=== PATIENT | female | born 2000 | race Caucasian/White ===

== ENCOUNTER 2019-07-02 12:38 | Emergency (ER) | payer BC ==
[2019-07-02] MEDS ORDERED: Ketorolac INJ* 30 MG/ML 1 ML VIAL IV ONE (15:33)
[2019-07-02] MEDS ORDERED: Metoclopramide IV* 5 MG/ML 2 ML VIAL IV SLOW PU ONE (15:33)
[2019-07-02] MEDS ORDERED: NS 0.9% 1000 ML** 1,000 ML IV ONE (15:33)
--- NOTE | 2019-07-02 17:50 | ED ---
Neurological HPI - HPI Summary HPI Summary: 19 y/o female presented to [facility] for frequent migraines recently. She has a 7 year hx of migraines that usually occur once per month but she has had one every day for the past 7 days. She is experiencing nausea, lateral neck pain and pain by her left eye radiating toward the back of her head. She reports her migraines usually starts near her eye and radiates down her neck. In the room, she was sensitive to light. Pt denies vomiting. Her migraine today began 3 hours after waking up, and she notes that her migraines are usually better at night. No fevers or infectious symptoms. Is supposed to get sumatriptan from [facility], did not get yet. Does not have a neurologist. - History of Current Complaint Chief Complaint: EDHeadache Stated Complaint: MIGRAINE PER PT Time Seen by Provider: 07/02/19 15:32 Hx Obtained From: Patient Onset/Duration: Started hours ago, Still Present Current Severity: Severe Pain Intensity: 8 Pain Scale Used: 0-10 Numeric Aggravating: Bright Lights Alleviating: Rest, Closing Eyes Associated Signs and Symptoms: Positive: Headache, Nausea/Vomiting - nausea, Neck Pain/Stiffness - Allergy/Home Medications Allergies/Adverse Reactions: Allergies Allergy/AdvReac Type Severity Reaction Status Date / Time No Known Allergies Allergy Verified 07/02/19 12:45 PMH/Surg Hx/FS Hx/Imm Hx Sensory History: Denies: Hx Legally Blind, Hx Deafness Opthamlomology History: Denies: Hx Legally Blind EENT History: Denies: Hx Deafness Infectious Disease History: No Infectious Disease History: Denies: Traveled Outside the [place] in Last 30 Days - Family History Known Family History: Negative: Blood Disorder - Social History Alcohol Use: None Substance Use Type: Reports: None Smoking Status (MU): Never Smoked Tobacco Review of Systems Positive: Photophobia Positive: Nausea Positive: Other - bilat neck stiffness Positive: Headache All Other Systems Reviewed And Are Negative: Yes Physical Exam - Summary Physical Exam Summary: Constitutional: Well-developed, Well-nourished, Alert. (-) Distressed Skin: Warm, Dry HENT: Normocephalic; Atraumatic Eyes: Conjunctiva normal, PERRL Neck: Musculoskeletal ROM normal neck. (-) JVD, (-) Stridor, (-) Nuchal rigidity , mild L sided paraspinal tenderness. Cardio: Rhythm regular, rate normal, Heart sounds normal; Intact distal pulses; Radial pulses are 2+ and symmetric. (-) Murmur Pulmonary/Chest wall: Effort normal. (-) Respiratory distress, (-) Wheezes, (-) Rales Abd: Soft, (-) tenderness, (-) Distension, (-) Guarding, (-) Rebound Musculoskeletal: (-) Edema Lymph: (-) Cervical adenopathy Neuro: Alert, Oriented x3, CN 2-12 grossly intact, ambulates w steady gait. Psych: Mood and affect Normal Triage Information Reviewed: Yes Vital Signs On Initial Exam: Initial Vitals Temp Pulse Resp BP Pulse Ox 99.1 F 66 16 142/89 98 07/02/19 12:42 07/02/19 12:42 07/02/19 12:42 07/02/19 12:42 07/02/19 12:42 Vital Signs Reviewed: Yes Procedures - Sedation Patient Received Moderate/Deep Sedation with Procedure: No Diagnostics - Vital Signs Vital Signs Temp Pulse Resp BP Pulse Ox 07/02/19 14:36 98.7 F 62 19 127/73 98 07/02/19 12:42 99.1 F 66 16 142/89 98 - Laboratory Lab Statement: Any lab studies that have been ordered have been reviewed, and results considered in the medical decision making process. Re-Evaluation - Re-Evaluation First Eval Re-Evaluation Time: 17:15 Comment: Pt is feeling better, will f/u w neurology Course/Dx - Course Course Of Treatment: 19 y/o F w hx migraines p/w headache. - although does NOT have a history of headache of exactly the same type, pain was not sudden onset/ thunderbolt, not worst of life, no meningismus, no neuro deficit on exam, and no personal/family history of aneurysm, so unlikely ICH. No known/suspected cancer and neuro exam WNL, so unlikely mass lesion. No fever, URI sx, meningismus, or known immunocompromised state to suggest meningitis. Therefore no imaging ordered and no LP performed at this point. Will try symptomatic relief and reassess. - Diagnoses Provider Diagnoses: Migraine Discharge ED - Sign-Out/Discharge Documenting (check all that apply): Patient Departure - dc - Discharge Plan Condition: Stable Disposition: HOME Patient Education Materials: Migraine Headache (ED) Referrals: Brandi Mayorga, [employer] [Primary Care Provider] - Villa Del Castillo MD [Medical Doctor] - Additional Instructions: You were seen in the emergency department for a migraine. Please follow up with neurology. Please follow up with your primary care doctor in next 2-3 days and return to emergency department for worsening headaches, fevers, neck pain, or concerning symptoms. It was a pleasure taking care of you today. - Billing Disposition and Condition Condition: STABLE Disposition: Home - Attestation Statements Document Initiated by Leslie: Yes Documenting Scribe: Kal Francis Provider For Whom Leslie is Documenting (Include Credential): Charito Barrera Scribe Attestation: Kal Newton, manuelaibed for [place]n [place] on 07/03/19 at 1553. Scribe Documentation Reviewed: Yes Provider Attestation: The documentation as recorded by the lillyeKal accurately reflects the service I personally performed and the decisions made by Charito valentino Status of Scribe Document: Viewed
[2019-07-02 18:00] VITALS: BP 104/73
== END 2019-07-02 17:59 | disposition home or self-care (01) ==
LOC: ED 12:38
DX: G43.909 Migraine, unspecified, not intractable, without status migrainosus (principal); R11.2 Nausea with vomiting, unspecified; M54.2 Cervicalgia
CPT/HCPCS: 96361; 96374; 96375; 99282; J1885; J2765